=== PATIENT | male | born 1980 | race Caucasian/White ===

== ENCOUNTER 2018-03-13 18:30 | Inpatient (IN) | payer BC ==
[~2018-03-13] VITALS: Ht 172.7 cm; Wt 75.1 kg
[2018-03-13] MEDS ORDERED: NICO-650 MISC (18:42)
[2018-03-13] MEDS ORDERED: ARIP882S IM (18:42)
[2018-03-13] MEDS ORDERED: DIAZ5 PO (18:42)
[2018-03-13] MEDS ORDERED: IBUP-2071 PO (18:42)
[2018-03-13] MEDS ORDERED: DIVA-78 PO (18:42)
[2018-03-13] MEDS ORDERED: ARIP1064 IM (20:13)
[2018-03-13] MEDS ORDERED: NICOTINE 21 MG/24 HOUR PATCH TD ONE (20:15)
[2018-03-13] MEDS ORDERED: LORazepam 2 MG/ML VIAL IM ONE (20:15)
[2018-03-13 20:16] LABS: ANION GAP 9 mmol/L (8-16); CALCIUM, TOTAL 8.8 mg/dL (8.8-10.5); CARBON DIOXIDE 28 mmol/L (22-29); CHLORIDE 103 mmol/L (98-107); CREATININE 0.72 mg/dL (0.60-1.30); GLOMERULAR FILTR. RATE CALC > 60 mL/min (>60); GLUCOSE,RANDOM 81 mg/dL (70-110); POTASSIUM 3.6 mmol/L (3.5-5.1); SODIUM SERUM 140 mmol/L (136-145); UREA NITROGEN, BLOOD 18 mg/dL (7-18)
[2018-03-13 20:27] LABS: BASOPHILS % (AUTO) 0.3 % (0.0-2.0); EOSINOPHILS % (AUTO) 1.8 % (1.0-6.0); HEMATOCRIT 42.2 % (41-53); HEMOGLOBIN 14.5 g/dL (13.5-17.5); LYMPHOCYTES # (AUTO) 3.7 K/uL (1.0-4.8); MEAN CORPUSCULAR HEMOGLOBIN 27.1 pg (26.0-34.0); MEAN CORPUSCULAR HGB CONC 34.4 G/dL (31.0-37.0); MEAN CORPUSCULAR VOLUME 79 fL (80-100); MONOCYTES # (AUTO) 0.6 K/uL (0.1-1.0); MONOCYTES % (AUTO) 6.6 % (2.0-9.0); NEUTROPHILS # (AUTO) 4.6 K/uL (1.8-7.7); NEUTROPHILS % (AUTO) 50.3 % (40.0-70.0); PLATELET COUNT (AUTO) 352 K/uL (150-450); RED BLOOD CELL COUNT(AUTO) 5.35 MIL/uL (4.50-5.90); RED CELL DISTRIBUTION WIDTH 13.8 % (11.5-14.5)
[2018-03-13] MEDS ORDERED: ZOLPIDEM TARTRATE 10 MG TABLET PO PRN (20:30)
[2018-03-13 20:33] LABS: ALANINE AMINOTRANSFERASE 12 U/L (12-78); ALBUMIN 3.5 g/dL (3.4-5.0); ALKALINE PHOSPHATASE 69 U/L (46-116); ASPARTATE AMINOTRANSFERASE 21 U/L (15-37); BILIRUBIN,TOTAL 0.2 mg/dL (0.1-1.0); TOTAL PROTEIN, SERUM 6.8 g/dL (6.4-8.2)
[2018-03-13 21:00] LABS: AMPHET/METH SCREEN,URINE NEGATIVE (NEGATIVE); BARBITURATE SCREEN, URINE NEGATIVE (NEGATIVE); BENZODIAZEPINES SCREEN,URINE POSITIVE (NEGATIVE); CANNABINOID SCREEN,URINE NEGATIVE (NEGATIVE); COCAINE SCREEN,URINE NEGATIVE (NEGATIVE); METHADONE SCREEN, URINE NEGATIVE (NEGATIVE); OPIATE SCREEN,URINE NEGATIVE (NEGATIVE); PHENCYCLIDINE SCREEN,URINE NEGATIVE (NEGATIVE)
[2018-03-13 21:45] LABS: HEMOGLOBIN A1C 5.1 % (4.5-6.2)
[2018-03-13 21:56] VITALS: BP 132/88
[2018-03-13 21:58] LABS: THYROID STIMULATING HORMONE 2.07 uIU/mL (0.36-3.74)
[2018-03-13] MEDS ORDERED: MAGNESIUM HYDROXIDE SUSPENSION 30 ML UDCUP PO PRN (22:15)
[2018-03-13] MEDS ORDERED: MAG HYDROX/AL HYDROX/SIMETH ES 30 ML SUSPENSION UDCUP PO PRN (22:15)
[2018-03-13] MEDS ORDERED: PETROLATUM,WHITE 71 GM JELLY TP PRN (22:15)
[2018-03-13] MEDS ORDERED: GuaiFENesin/D-METHORPHAN [SUGAR-FREE] 200-20MG/10 ML SYRUP UDCUP PO PRN (22:15)
[2018-03-13] MEDS ORDERED: DOCUSATE SODIUM 100 MG CAPSULE PO PRN (22:15)
[2018-03-13] MEDS ORDERED: CloNIDine HCL 0.1 MG TABLET PO PRN (22:15)
[2018-03-13] MEDS ORDERED: ALBUTEROL SULFATE HFA 90 MCG/PUFF 8 GM INHALER IH PRN (22:15)
[2018-03-13] MEDS ORDERED: ONDANSETRON HCL 4 MG TABLET PO PRN (22:15)
[2018-03-13] MEDS ORDERED: ACETAMINOPHEN 325 MG TABLET PO PRN (22:15)
[2018-03-13] MEDS ORDERED: LOPERAMIDE HCL 2 MG CAPSULE PO PRN (22:15)
[2018-03-14] MEDS: LORazepam 2 MG TABLET PO PRN (08:08)
[2018-03-14] MEDS: HALOPERIDOL 5 MG TABLET PO PRN (08:08)
[2018-03-14 08:13] LABS: HEMOGLOBIN A1C 5.5 % (4.5-6.2)
[2018-03-14 08:15] LABS: BASOPHILS % (AUTO) 0.3 % (0.0-2.0); EOSINOPHILS % (AUTO) 1.8 % (1.0-6.0); HEMATOCRIT 45.7 % (41-53); HEMOGLOBIN 15.7 g/dL (13.5-17.5); LYMPHOCYTES # (AUTO) 3.5 K/uL (1.0-4.8); LYMPHOCYTES % (AUTO) 38.9 % (22.0-44.0); MEAN CORPUSCULAR HEMOGLOBIN 27.3 pg (26.0-34.0); MEAN CORPUSCULAR HGB CONC 34.4 G/dL (31.0-37.0); MEAN CORPUSCULAR VOLUME 79 fL (80-100); MONOCYTES # (AUTO) 0.6 K/uL (0.1-1.0); MONOCYTES % (AUTO) 6.7 % (2.0-9.0); NEUTROPHILS # (AUTO) 4.7 K/uL (1.8-7.7); NEUTROPHILS % (AUTO) 52.3 % (40.0-70.0); PLATELET COUNT (AUTO) 374 K/uL (150-450); RED BLOOD CELL COUNT(AUTO) 5.76 MIL/uL (4.50-5.90); RED CELL DISTRIBUTION WIDTH 13.9 % (11.5-14.5)
[2018-03-14] MEDS: NICOTINE 21 MG/24 HOUR PATCH TD SCH (08:36)
[2018-03-14 09:12] LABS: ALANINE AMINOTRANSFERASE 22 U/L (12-78); ALBUMIN 3.9 g/dL (3.4-5.0); ALKALINE PHOSPHATASE 77 U/L (46-116); ANION GAP 7 mmol/L (8-16); ASPARTATE AMINOTRANSFERASE 25 U/L (15-37); BILIRUBIN,TOTAL 0.5 mg/dL (0.1-1.0); CALCIUM, TOTAL 9.8 mg/dL (8.8-10.5); CARBON DIOXIDE 30 mmol/L (22-29); CHLORIDE 102 mmol/L (98-107); CHOL/HDL RATIO 3.1 (4.2-7.3); CHOLESTEROL 161 mg/dL (131-200); CREATININE 0.67 mg/dL (0.60-1.30); GLOMERULAR FILTR. RATE CALC > 60 mL/min (>60); GLUCOSE,RANDOM 95 mg/dL (70-110); HDL CHOLESTEROL 52 mg/dL (40-60); LDL CHOL (CALC.) 96 mg/dL (0-130); POTASSIUM 4.6 mmol/L (3.5-5.1); SODIUM SERUM 139 mmol/L (136-145); THYROID STIMULATING HORMONE 1.07 uIU/mL (0.36-3.74); TRIGLYCERIDES 63 mg/dL (15-150); UREA NITROGEN, BLOOD 15 mg/dL (7-18)
[2018-03-14 09:13] VITALS: BP 119/79
[2018-03-14] MEDS: LITHIUM CARBONATE 300 MG CAPSULE PO SCH ×2 (11:14→16:57)
[2018-03-14] MEDS: ClonazePAM 1 MG TABLET PO SCH (11:14)
[2018-03-14] MEDS: DIVALPROEX SODIUM 500 MG ER TABLET PO SCH (11:14)
[2018-03-14] MEDS: ARIPiprazole 10 MG TABLET PO SCH (11:14)
[2018-03-14 17:54] VITALS: BP 118/93
[2018-03-15] MEDS: HALOPERIDOL 5 MG TABLET PO PRN (08:21)
[2018-03-15] MEDS: ClonazePAM 1 MG TABLET PO SCH (08:21)
[2018-03-15] MEDS: DIVALPROEX SODIUM 500 MG ER TABLET PO SCH (08:21)
[2018-03-15] MEDS: LITHIUM CARBONATE 300 MG CAPSULE PO SCH ×2 (08:21→17:45)
[2018-03-15] MEDS: ARIPiprazole 10 MG TABLET PO SCH (08:22)
[2018-03-15] MEDS: NICOTINE 21 MG/24 HOUR PATCH TD SCH (08:26)
[2018-03-15 08:37] VITALS: BP 121/64
[2018-03-15] MEDS: IBUPROFEN 400 MG TABLET PO PRN (09:08)
[2018-03-15 09:10] VITALS: BP 121/64
[2018-03-15] MEDS: LORazepam 2 MG TABLET PO PRN (17:46)
[2018-03-15 18:46] VITALS: BP 124/79
[2018-03-16] MEDS: IBUPROFEN 400 MG TABLET PO PRN (05:08)
[2018-03-16] MEDS: ARIPiprazole 10 MG TABLET PO SCH ×2 (08:23→08:47)
[2018-03-16] MEDS: ClonazePAM 1 MG TABLET PO SCH ×2 (08:24→08:43)
[2018-03-16] MEDS: LITHIUM CARBONATE 300 MG CAPSULE PO SCH ×3 (08:24→16:19)
[2018-03-16] MEDS: DIVALPROEX SODIUM 500 MG ER TABLET PO SCH ×2 (08:25→08:44)
[2018-03-16] MEDS: LORazepam 2 MG TABLET PO PRN ×2 (08:26→08:47)
[2018-03-16] MEDS: HALOPERIDOL 5 MG TABLET PO PRN ×2 (08:26→08:44)
[2018-03-16] MEDS: NICOTINE 14 MG/24 HOUR PATCH TD PRN (08:42)
[2018-03-16] MEDS: NICOTINE 21 MG/24 HOUR PATCH TD SCH (08:47)
[2018-03-16 10:57] VITALS: BP 119/65
[2018-03-16 18:56] VITALS: BP 92/55
[2018-03-17] MEDS: ClonazePAM 1 MG TABLET PO SCH (07:52)
[2018-03-17] MEDS: LITHIUM CARBONATE 300 MG CAPSULE PO SCH (07:52)
[2018-03-17] MEDS: ARIPiprazole 10 MG TABLET PO SCH (07:56)
[2018-03-17] MEDS: NICOTINE 14 MG/24 HOUR PATCH TD PRN (07:57)
[2018-03-17] MEDS: DIVALPROEX SODIUM 500 MG ER TABLET PO SCH (07:58)
[2018-03-17] MEDS: NICOTINE 21 MG/24 HOUR PATCH TD SCH (07:59)
[2018-03-17 08:40] VITALS: BP 115/64
[2018-03-17] MEDS: IBUPROFEN 400 MG TABLET PO PRN (11:03)
[2018-03-17] MEDS ORDERED: LITH300C3 PO (11:14)
[2018-03-17] MEDS ORDERED: DIVA500T52 PO (11:14)
[2018-03-17] MEDS ORDERED: CLON1 PO (11:14)
[2018-03-17] MEDS ORDERED: ARIP10TA8 PO (11:16)
== END 2018-03-17 14:13 | disposition home or self-care (01) | DRG 885 ==
LOC: EMS 18:31 → 3EC 21:00
PROVIDERS: ADMIT Psychiatry & Neurology Child & Adolescent Psychiatry; ATTEND Psychiatry & Neurology Child & Adolescent Psychiatry
DX: F25.0 Schizoaffective disorder, bipolar type (principal); F10.10 Alcohol abuse, uncomplicated; F17.210 Nicotine dependence, cigarettes, uncomplicated; F31.9 Bipolar disorder, unspecified; G40.909 Epilepsy, unspecified, not intractable, without status epilepticus; G47.00 Insomnia, unspecified; K21.9 Gastro-esophageal reflux disease without esophagitis; F12.90 Cannabis use, unspecified, uncomplicated; F41.9 Anxiety disorder, unspecified; Z59.0 Homelessness; Z71.41 Alcohol abuse counseling and surveillance of alcoholic; Z71.6 Tobacco abuse counseling; Z91.14 Patient's other noncompliance with medication regimen; Z88.0 Allergy status to penicillin
CPT/HCPCS: 83036; 84439; 84443; 87081; 96372; G0480; J2060

== ENCOUNTER 2018-03-24 10:08 | Inpatient (IN) | payer BC ==
[~2018-03-24] VITALS: Ht 172.7 cm; Wt 73.9 kg
[~2018-03-24 10:08] MED LIST: ARIP10TA8 PO; CLON1 PO; DIVA500T52 PO; LITH300C3 PO
[2018-03-24 11:38] LABS: BASOPHILS % (AUTO) 0.4 % (0.0-2.0); EOSINOPHILS % (AUTO) 2.3 % (1.0-6.0); HEMATOCRIT 43.3 % (41-53); HEMOGLOBIN 14.7 g/dL (13.5-17.5); LYMPHOCYTES # (AUTO) 3.1 K/uL (1.0-4.8); LYMPHOCYTES % (AUTO) 38.3 % (22.0-44.0); MEAN CORPUSCULAR HEMOGLOBIN 27.2 pg (26.0-34.0); MEAN CORPUSCULAR VOLUME 80 fL (80-100); MONOCYTES # (AUTO) 0.7 K/uL (0.1-1.0); MONOCYTES % (AUTO) 8.9 % (2.0-9.0); NEUTROPHILS # (AUTO) 4.1 K/uL (1.8-7.7); NEUTROPHILS % (AUTO) 50.1 % (40.0-70.0); PLATELET COUNT (AUTO) 417 K/uL (150-450); RED BLOOD CELL COUNT(AUTO) 5.42 MIL/uL (4.50-5.90); RED CELL DISTRIBUTION WIDTH 13.9 % (11.5-14.5)
[2018-03-24 11:40] LABS: AMPHET/METH SCREEN,URINE POSITIVE (NEGATIVE); BARBITURATE SCREEN, URINE NEGATIVE (NEGATIVE); BENZODIAZEPINES SCREEN,URINE NEGATIVE (NEGATIVE); CANNABINOID SCREEN,URINE POSITIVE (NEGATIVE); COCAINE SCREEN,URINE POSITIVE (NEGATIVE); METHADONE SCREEN, URINE NEGATIVE (NEGATIVE); OPIATE SCREEN,URINE NEGATIVE (NEGATIVE)
[2018-03-24 11:46] LABS: PHENCYCLIDINE SCREEN,URINE NEGATIVE (NEGATIVE)
[2018-03-24 11:50] LABS: ANION GAP 5 mmol/L (8-16); CALCIUM, TOTAL 8.8 mg/dL (8.8-10.5); CARBON DIOXIDE 30 mmol/L (22-29); CHLORIDE 102 mmol/L (98-107); CREATININE 0.87 mg/dL (0.60-1.30); GLOMERULAR FILTR. RATE CALC > 60 mL/min (>60); GLUCOSE,RANDOM 102 mg/dL (70-110); POTASSIUM 3.7 mmol/L (3.5-5.1); SODIUM SERUM 137 mmol/L (136-145); UREA NITROGEN, BLOOD 15 mg/dL (7-18)
[2018-03-24 11:52] LABS: LITHIUM < 0.20 mmol/L (0.60-1.20)
[2018-03-24 11:56] LABS: ALANINE AMINOTRANSFERASE 23 U/L (12-78); ALBUMIN 3.6 g/dL (3.4-5.0); ALKALINE PHOSPHATASE 72 U/L (46-116); ASPARTATE AMINOTRANSFERASE 23 U/L (15-37); BILIRUBIN,TOTAL 0.3 mg/dL (0.1-1.0); TOTAL PROTEIN, SERUM 6.7 g/dL (6.4-8.2)
[2018-03-24 12:01] LABS: VALPROIC ACID < 3 mcg/mL (50-100)
[2018-03-24] MEDS ORDERED: ACETAMINOPHEN 325 MG TABLET PO PRN (16:15)
[2018-03-24] MEDS ORDERED: LORazepam 2 MG TABLET PO PRN (16:15)
[2018-03-24] MEDS ORDERED: HALOPERIDOL 5 MG TABLET PO PRN (16:15)
[2018-03-24] MEDS ORDERED: ZOLPIDEM TARTRATE 10 MG TABLET PO PRN (16:15)
[2018-03-24 21:05] VITALS: BP 115/62
[2018-03-25 02:02] VITALS: BP 120/80
[2018-03-25 08:43] VITALS: BP 115/64
[2018-03-25 09:45] LABS: AMPHET/METH SCREEN,URINE POSITIVE (NEGATIVE); BARBITURATE SCREEN, URINE NEGATIVE (NEGATIVE); BENZODIAZEPINES SCREEN,URINE NEGATIVE (NEGATIVE); CANNABINOID SCREEN,URINE POSITIVE (NEGATIVE); COCAINE SCREEN,URINE POSITIVE (NEGATIVE); METHADONE SCREEN, URINE NEGATIVE (NEGATIVE); OPIATE SCREEN,URINE NEGATIVE (NEGATIVE); PHENCYCLIDINE SCREEN,URINE NEGATIVE (NEGATIVE)
[2018-03-25 09:54] LABS: APPEARANCE,URINE CLEAR (CLEAR); BILIRUBIN,URINE NEGATIVE (NEGATIVE); GLUCOSE, URINE (UA) NEGATIVE (NEGATIVE); KETONES,URINE NEGATIVE (NEGATIVE); LEUKOCYTE ESTERASE ,URINE NEGATIVE (NEGATIVE); NITRATE,URINE NEGATIVE (NEGATIVE); OCCULT BLOOD,URINE NEGATIVE (NEGATIVE); PROTEIN,URINE NEGATIVE (NEGATIVE)
[2018-03-25] MEDS: ARIPiprazole 10 MG TABLET PO SCH (11:00)
[2018-03-25] MEDS ORDERED: PNEUMOCOCCAL VACCINE POLYVALENT 0.5 ML VIAL [PPSV23] IM ONE (11:15)
[2018-03-25 16:48] VITALS: BP 115/69
[2018-03-25] MEDS: DIVALPROEX SODIUM 250 MG DR TABLET PO SCH (17:00)
[2018-03-25] MEDS: LITHIUM CARBONATE 300 MG CAPSULE PO SCH (17:15)
[2018-03-26 03:14] VITALS: BP 115/64
[2018-03-26 08:33] VITALS: BP 112/72
[2018-03-26] MEDS: ARIPiprazole 10 MG TABLET PO SCH (09:00)
[2018-03-26] MEDS: DIVALPROEX SODIUM 250 MG DR TABLET PO SCH ×2 (09:00→17:04)
[2018-03-26 09:09] LABS: ALANINE AMINOTRANSFERASE 19 U/L (12-78); ALBUMIN 3.6 g/dL (3.4-5.0); ALKALINE PHOSPHATASE 66 U/L (46-116); ANION GAP 7 mmol/L (8-16); ASPARTATE AMINOTRANSFERASE 16 U/L (15-37); BASOPHILS % (AUTO) 0.7 % (0.0-2.0); BILIRUBIN,TOTAL 0.4 mg/dL (0.1-1.0); CALCIUM, TOTAL 9.1 mg/dL (8.8-10.5); CARBON DIOXIDE 28 mmol/L (22-29); CHLORIDE 101 mmol/L (98-107); CHOL/HDL RATIO 2.5 (4.2-7.3); CHOLESTEROL 130 mg/dL (131-200); CREATININE 0.89 mg/dL (0.60-1.30); EOSINOPHILS % (AUTO) 1.8 % (1.0-6.0); GLOMERULAR FILTR. RATE CALC > 60 mL/min (>60); GLUCOSE,RANDOM 86 mg/dL (70-110); HDL CHOLESTEROL 52 mg/dL (40-60); HEMATOCRIT 45.9 % (41-53); HEMOGLOBIN 15.1 g/dL (13.5-17.5); LDL CHOL (CALC.) 59 mg/dL (0-130); LYMPHOCYTES # (AUTO) 3.3 K/uL (1.0-4.8); LYMPHOCYTES % (AUTO) 42.1 % (22.0-44.0); MEAN CORPUSCULAR HEMOGLOBIN 26.6 pg (26.0-34.0); MEAN CORPUSCULAR VOLUME 81 fL (80-100); MONOCYTES # (AUTO) 0.6 K/uL (0.1-1.0); MONOCYTES % (AUTO) 7.8 % (2.0-9.0); NEUTROPHILS # (AUTO) 3.7 K/uL (1.8-7.7); NEUTROPHILS % (AUTO) 47.6 % (40.0-70.0); PLATELET COUNT (AUTO) 429 K/uL (150-450); POTASSIUM 3.8 mmol/L (3.5-5.1); RED BLOOD CELL COUNT(AUTO) 5.69 MIL/uL (4.50-5.90); RED CELL DISTRIBUTION WIDTH 14.3 % (11.5-14.5); SODIUM SERUM 136 mmol/L (136-145); TOTAL PROTEIN, SERUM 6.8 g/dL (6.4-8.2); TRIGLYCERIDES 93 mg/dL (15-150); UREA NITROGEN, BLOOD 14 mg/dL (7-18)
[2018-03-26 09:41] LABS: HEMOGLOBIN A1C 5.5 % (4.5-6.2)
[2018-03-26] MEDS: LITHIUM CARBONATE 300 MG CAPSULE PO SCH ×2 (09:53→17:04)
[2018-03-26 16:30] VITALS: BP 122/66
[2018-03-26] MEDS: IBUPROFEN 400 MG TABLET PO PRN (16:31)
[2018-03-27 05:09] VITALS: BP 114/65
[2018-03-27 06:15] VITALS: BP 113/63
[2018-03-27] MEDS: IBUPROFEN 400 MG TABLET PO PRN (06:20)
[2018-03-27 08:07] VITALS: BP 106/68
[2018-03-27] MEDS: LITHIUM CARBONATE 300 MG CAPSULE PO SCH ×2 (08:18→16:17)
[2018-03-27] MEDS: ARIPiprazole 10 MG TABLET PO SCH (08:21)
[2018-03-27] MEDS: DIVALPROEX SODIUM 250 MG DR TABLET PO SCH ×2 (08:21→16:18)
[2018-03-27 16:05] VITALS: BP 134/72
[2018-03-28 00:48] VITALS: BP 122/68
[2018-03-28 07:48] VITALS: BP 118/70
[2018-03-28] MEDS: LITHIUM CARBONATE 300 MG CAPSULE PO SCH ×2 (08:41→16:44)
[2018-03-28] MEDS: DIVALPROEX SODIUM 250 MG DR TABLET PO SCH ×2 (08:45→16:48)
[2018-03-28] MEDS: ARIPiprazole 10 MG TABLET PO SCH (08:45)
[2018-03-28 09:10] VITALS: BP 118/70
[2018-03-28 16:07] VITALS: BP 120/72
[2018-03-29 02:43] VITALS: BP 111/70
[2018-03-29] MEDS: LITHIUM CARBONATE 300 MG CAPSULE PO SCH ×2 (08:31→16:26)
[2018-03-29 08:40] VITALS: BP 114/71
[2018-03-29] MEDS: DIVALPROEX SODIUM 250 MG DR TABLET PO SCH ×2 (08:44→16:26)
[2018-03-29] MEDS: ARIPiprazole 10 MG TABLET PO SCH (08:44)
[2018-03-29 11:01] VITALS: BP 118/78
[2018-03-29] MEDS: IBUPROFEN 400 MG TABLET PO PRN (11:01)
[2018-03-29 16:13] VITALS: BP 109/73
[2018-03-30 00:40] VITALS: BP 109/69
[2018-03-30 07:52] LABS: LITHIUM 0.3 mmol/L (0.60-1.20)
[2018-03-30 08:20] VITALS: BP 120/80
[2018-03-30] MEDS: ARIPiprazole 10 MG TABLET PO SCH (09:38)
[2018-03-30] MEDS: LITHIUM CARBONATE 300 MG CAPSULE PO SCH ×2 (09:38→16:54)
[2018-03-30] MEDS: DIVALPROEX SODIUM 250 MG DR TABLET PO SCH ×2 (09:38→16:53)
[2018-03-30 16:08] VITALS: BP 110/61
[2018-03-31 02:13] VITALS: BP 103/62
[2018-03-31 08:17] VITALS: BP 123/68
[2018-03-31] MEDS: DIVALPROEX SODIUM 250 MG DR TABLET PO SCH (08:50)
[2018-03-31] MEDS: LITHIUM CARBONATE 300 MG CAPSULE PO SCH (08:50)
[2018-03-31] MEDS: ARIPiprazole 10 MG TABLET PO SCH (08:56)
== END 2018-03-31 13:05 | disposition home or self-care (01) | DRG 885 ==
LOC: EMS 10:09 → B2X 12:17 → B2S 19:11 → B2X 03-26 09:19
PROVIDERS: ADMIT Psychiatry & Neurology Child & Adolescent Psychiatry; ATTEND Psychiatry & Neurology Child & Adolescent Psychiatry
DX: F25.0 Schizoaffective disorder, bipolar type (principal); F17.210 Nicotine dependence, cigarettes, uncomplicated; K21.9 Gastro-esophageal reflux disease without esophagitis; F10.10 Alcohol abuse, uncomplicated; K59.00 Constipation, unspecified; G47.00 Insomnia, unspecified; Z88.0 Allergy status to penicillin; Z59.0 Homelessness; Z79.899 Other long term (current) drug therapy
CPT/HCPCS: 80307; 83036; 84439; 84443; G0480

== ENCOUNTER 2018-03-24 10:11 | Emergency (ER) | payer BC ==
[~2018-03-24] VITALS: Ht 172.7 cm; Wt 72.8 kg
[2018-03-24] MEDS ORDERED: LORazepam 2 MG TABLET PO PRN (11:30)
[2018-03-24] MEDS ORDERED: ACETAMINOPHEN 325 MG TABLET PO PRN ×2 (11:30→15:15)
[2018-03-24] MEDS ORDERED: IBUPROFEN 400 MG TABLET PO PRN ×2 (11:30→15:15)
[2018-03-24] MEDS ORDERED: HALOPERIDOL 5 MG TABLET PO PRN (11:30)
[2018-03-24] MEDS ORDERED: ZOLPIDEM TARTRATE 10 MG TABLET PO PRN (11:30)
[2018-03-24] MEDS ORDERED: MAG HYDROX/AL HYDROX/SIMETH ES 30 ML SUSPENSION UDCUP PO PRN (15:15)
[2018-03-24] MEDS ORDERED: ONDANSETRON HCL 4 MG TABLET PO PRN (15:15)
[2018-03-24] MEDS ORDERED: PETROLATUM,WHITE 71 GM JELLY TP PRN (15:15)
[2018-03-24] MEDS ORDERED: ALBUTEROL SULFATE HFA 90 MCG/PUFF 8 GM INHALER IH PRN (15:15)
[2018-03-24] MEDS ORDERED: DOCUSATE SODIUM 100 MG CAPSULE PO PRN (15:15)
[2018-03-24] MEDS ORDERED: CloNIDine HCL 0.1 MG TABLET PO PRN (15:15)
[2018-03-24] MEDS ORDERED: NICOTINE 14 MG/24 HOUR PATCH TD PRN (15:15)
[2018-03-24] MEDS ORDERED: GuaiFENesin/D-METHORPHAN [SUGAR-FREE] 200-20MG/10 ML SYRUP UDCUP PO PRN (15:15)
[2018-03-24] MEDS ORDERED: MAGNESIUM HYDROXIDE SUSPENSION 30 ML UDCUP PO PRN (15:15)
[2018-03-24] MEDS ORDERED: LOPERAMIDE HCL 2 MG CAPSULE PO PRN (15:15)
== END 2018-03-24 15:27 | disposition left against medical advice (07) ==
LOC: EMS 10:14
DX: R42 Dizziness and giddiness (principal); Z53.21 Procedure and treatment not carried out due to patient leaving prior to being seen by health care provider
CPT/HCPCS: 87081